=== PATIENT | female | born 1990 | race Caucasian/White ===

== ENCOUNTER 2017-09-09 10:57 | Emergency (ER) | payer OTHER ==
[2017-09-09 11:24] VITALS: TEMP 98.2; BMI 21.7
[2017-09-09 12:01] LABS: SQUAMOUS EPITHIAL 1 /hpf (0-5); URINE BILIRUBIN NEGATIVE (NEGATIVE); URINE BLOOD NEGATIVE (NEGATIVE); URINE CLARITY Clear (Clear); URINE COLOR Colorless (YELLOW); URINE GLUCOSE (UA) NORMAL (Normal); URINE LEUKOCYTE ESTERASE NEG Leu/uL (Negative); URINE PROTEIN NEGATIVE (NEGATIVE); URINE UROBILINOGEN NORMAL mg/dL (0.2-1.0)
[2017-09-09 12:04] LABS: HCG,QUALITATIVE URINE NEGATIVE (NEGATIVE)
--- NOTE | 2017-09-09 13:10 | C.PDOC ---
History Of Present Illness 27 y/o female c/o itching to geniatal area from vagina to rectum; pt has had this for months, has seen chief scientific officer Dr Ramesh 7 times. tx for bv, seen by sergio SEBASTIAN with recent levaquin and po antifungal on August 22/2018. pt reports recent neg gc/ chlamydia, hiv, syphillis tests. pt reports neg for dm and immune disorders. here today for persistent itching to area. not currently sexually active. Time Seen by Provider: 09/09/17 12:22 Chief Complaint (Nursing): Female Genitourinary Past Medical History Vital Signs: Last Vital Signs Temp 98.2 F 09/09/17 11:23 Pulse 92 H 09/09/17 11:23 Resp 16 09/09/17 11:23 BP 116/84 09/09/17 11:23 Pulse Ox 98 09/09/17 13:10 - Social History Hx Alcohol Use: No Hx Substance Use: No - Immunization History Hx Tetanus Toxoid Vaccination: No Hx Influenza Vaccination: No Hx Pneumococcal Vaccination: No ED Course And Treatment O2 Sat by Pulse Oximetry: 98 Medical Decision Making Medical Decision Making: pt with extensive outpatient workups for genital and perianal itching and recurrent yeast and bv infections. no skin irregularities noted. will d/c with f/u in dermatology, chief scientific officer and recommend to change soap. Disposition Counseled Patient/Family Regarding: Studies Performed, Diagnosis, Rx Given - Disposition Referrals: [facility] [Outside] Disposition: HOME/ ROUTINE Disposition Time: 13:43 Condition: GOOD Additional Instructions: Please follow up with your human resources advisor and also in medical clinic. Recommend that you change soap used to something gentle like Dove in genital region. You can take Atarax every 8 hours if needed- may make you sleepy. Prescriptions: hydrOXYzine HCl [Atarax] 25 mg PO Q8 #15 tab Instructions: Itchy Skin Forms: [facility] (Georgian), General Discharge Instructions - Clinical Impression Clinical Impression: Anogenital pruritus
[2017-09-09 14:02] VITALS: BP 106/71; PULSE 76; RESP 18; O2SAT 100
== END 2017-09-09 14:02 | disposition home or self-care (01) ==
LOC: C.ER 10:57
DX: L29.9 Pruritus, unspecified (principal)

== ENCOUNTER 2018-01-01 19:30 | Emergency (ER) | payer OTHER ==
[2018-01-01 19:38] VITALS: BP 124/87; PULSE 75; RESP 20; TEMP 99.2; O2SAT 98
--- NOTE | 2018-01-01 21:05 | C.PDOC ---
History Of Present Illness 27 year old female presents to the emergency department with complaints of two weeks of pain to her right foot. She denies injury, but states that three days ago she noticed swelling and mild redness to the top of her right foot. Time Seen by Provider: 01/01/18 20:09 Chief Complaint (Nursing): Lower Extremity Problem/Injury History Per: Patient History/Exam Limitations: no limitations Onset/Duration Of Symptoms: Days (3) Current Symptoms Are (Timing): Still Present Past Medical History Reviewed: Historical Data, Nursing Documentation, Vital Signs Vital Signs: Last Vital Signs Temp 99.2 F 01/01/18 19:35 Pulse 75 01/01/18 19:35 Resp 20 01/01/18 19:35 BP 124/87 01/01/18 19:35 Pulse Ox 98 01/01/18 22:33 - Medical History PMH: No Chronic Diseases Surgical History: No Surg Hx Family History: States: No Known Family Hx - Social History Hx Alcohol Use: No Hx Substance Use: No - Immunization History Hx Tetanus Toxoid Vaccination: No Hx Influenza Vaccination: No Hx Pneumococcal Vaccination: No Review Of Systems Except As Marked, All Systems Reviewed And Found Negative. Musculoskeletal: Positive for: Foot Pain (right) Neurological: Negative for: Weakness, Numbness Physical Exam - Physical Exam Appears: Non-toxic, No Acute Distress Skin: No Warm, Dry, Other (erythema at the dorsum of the right foot, area of the 3rd, 4th, and 5th metacarpal bones) Head: Atraumatic, Normacephalic Eye(s): bilateral: Normal Inspection Neck: Normal, Supple Chest: Symmetrical Extremity: Tenderness (right wax coating machine tender to palpation at the dorsum area of the 3rd, 4th, and 5th metacarpal bones. ), No Calf Tenderness, Capillary Refill (< 2 seconds), Swelling (right foot at the dorsum, area of the 3rd, 4th, and 5th metacarpal bones. ) Pulses: Left Dorsalis Pedis: Normal, Right Dorsalis Pedis: Normal Neurological/Psych: Oriented x3, Normal Speech, Normal Cognition ED Course And Treatment O2 Sat by Pulse Oximetry: 98 (RA) Pulse Ox Interpretation: Normal - Other Rad XR Right Foot X-Ray: Interpreted by Me, Viewed By Me Interpretation: Negative for fractures or dislocations. Progress Note: Plan: Keflex. Norbert. Patient referred to a auto inspection specialist. Disposition - Disposition Referrals: Jack Choi DPM [Staff Provider] - [facility]iatry [facility] [Outside] [facility] [Outside] Disposition: HOME/ ROUTINE Disposition Time: 21:03 Condition: STABLE Additional Instructions: Follow up with Machine Operator Hop Picker/Podiatry clinic within 2-3 days. Return to ED if feel worse. Prescriptions: Cephalexin [cephalexin] 500 mg PO Q6 #28 cap Ibuprofen [Motrin Tab] 600 mg PO Q8 #30 tab Instructions: Cephalexin Forms: [employer] (New Zealander) - Clinical Impression Clinical Impression: Foot pain - PA / RFID SYSTEMS ENGINEER / Resident Statement MD/DO has reviewed & agrees with the documentation as recorded. - Scribe Statement The provider has reviewed the documentation as recorded by the Scribe (Miguel Pfeiffer) All medical record entries made by the Scribe were at my direction and personally dictated by me. I have reviewed the chart and agree that the record accurately reflects my personal performance of the history, physical exam, medical decision making, and the department course for this patient. I have also personally directed, reviewed, and agree with the discharge instructions and disposition.
--- NOTE | 2018-01-02 07:41 | RAD ---
Date of service: 01/01/2018 PROCEDURE: Right Foot Radiographs. HISTORY: pain/swelling COMPARISON: None. FINDINGS: BONES: Normal. No fracture. JOINTS: Normal. SOFT TISSUES: Soft tissue swelling dorsal metatarsal level proximal to that. OTHER FINDINGS: None. IMPRESSION: No fracture seen. Soft tissue swelling
== END 2018-01-01 21:20 | disposition home or self-care (01) ==
LOC: C.ER 19:30
DX: M79.671 Pain in right foot (principal)